=== PATIENT | male | born 1960 | race Native Hawaiian/Other Pacific Islander ===

== ENCOUNTER 2017-11-06 11:12 | Outpatient (CLI) | payer BC | END 2017-11-06 20:56 | disposition home or self-care (01) | LOC: US 11:12 | DX: E04.1 Nontoxic single thyroid nodule (principal) ==

== ENCOUNTER 2018-10-12 13:12 | Outpatient (CLI) | payer BC ==
[2018-10-12 13:44] LABS: PLATELET COUNT 280 K/uL (142-355)
[2018-10-12 13:57] LABS: POTASSIUM 4.4 mmol/L (3.6-5.2)
== END 2018-10-12 19:18 | disposition home or self-care (01) ==
LOC: LAB 13:12
PROVIDERS: Emergency Medicine
DX: Z79.899 Other long term (current) drug therapy (principal)
CPT/HCPCS: 36415; 80053; 80061; 85027

== ENCOUNTER 2019-02-27 20:52 | Outpatient (CLI) | payer BC ==
[2019-02-27 21:11] LABS: PLATELET COUNT 273 K/uL (142-355)
[2019-02-27 21:41] LABS: POTASSIUM 4.2 mmol/L (3.6-5.2)
== END 2019-02-27 23:51 | disposition home or self-care (01) ==
LOC: LABW 20:52
PROVIDERS: Internal Medicine
DX: I25.10 Atherosclerotic heart disease of native coronary artery without angina pectoris (principal); Z12.5 Encounter for screening for malignant neoplasm of prostate; E78.00 Pure hypercholesterolemia, unspecified; E03.9 Hypothyroidism, unspecified
CPT/HCPCS: 36415; 80053; 80061; 81000; 84153; 84439; 84443; 85027

== ENCOUNTER 2019-07-06 21:40 | Outpatient (CLI) | payer BC ==
[2019-07-06 21:57] LABS: PLATELET COUNT 288 K/uL (142-355)
[2019-07-06 22:41] LABS: POTASSIUM 3.9 mmol/L (3.6-5.2)
== END 2019-07-06 22:48 | disposition home or self-care (01) ==
LOC: LABW 21:40
PROVIDERS: Dermatology Procedural Dermatology
DX: L43.9 Lichen planus, unspecified (principal)
CPT/HCPCS: 36415; 80053; 85027